=== PATIENT | male | born 1955 | race Two or more races ===

== ENCOUNTER 2024-06-14 10:57 | Outpatient (CLI) | payer OTHER | END 2024-06-14 11:01 | disposition home or self-care (01) | LOC: RAD 10:57 | PROVIDERS: ATTEND Specialist | DX: M17.11 Unilateral primary osteoarthritis, right knee (principal); Z68.26 Body mass index [BMI] 26.0-26.9, adult; I10 Essential (primary) hypertension; J40 Bronchitis, not specified as acute or chronic; M15.0 Primary generalized (osteo)arthritis ==

== ENCOUNTER 2024-09-05 12:51 | Outpatient (CLI) | payer OTHER | END 2024-09-05 13:01 | disposition home or self-care (01) | LOC: RAD 12:51 | DX: M17.11 Unilateral primary osteoarthritis, right knee (principal) ==

== ENCOUNTER → 2024-09-06 13:27 | Outpatient (CLI) | payer OTHER | END | disposition home or self-care (01) | LOC: NUCLEAR 08:00 | DX: I73.9 Peripheral vascular disease, unspecified (principal); I87.2 Venous insufficiency (chronic) (peripheral) ==

== ENCOUNTER 2024-09-07 08:07 | Outpatient (CLI) | payer OTHER | END 2024-09-07 08:08 | disposition home or self-care (01) | LOC: NUCLEAR 08:07 | DX: I82.509 Chronic embolism and thrombosis of unspecified deep veins of unspecified lower extremity (principal); I73.9 Peripheral vascular disease, unspecified; I87.2 Venous insufficiency (chronic) (peripheral) ==

== ENCOUNTER 2024-10-08 09:02 | Outpatient (CLI) | payer OTHER | END 2024-10-08 09:03 | disposition home or self-care (01) | LOC: NUCLEAR 09:02 | PROVIDERS: ATTEND Internal Medicine | DX: I48.0 Paroxysmal atrial fibrillation (principal); I11.9 Hypertensive heart disease without heart failure; I65.21 Occlusion and stenosis of right carotid artery ==

== ENCOUNTER 2024-12-12 08:59 | Outpatient (CLI) | payer OTHER | END 2024-12-12 09:03 | disposition home or self-care (01) | LOC: RAD 08:59 | DX: S22.31XA Fracture of one rib, right side, initial encounter for closed fracture (principal) ==